=== PATIENT | female | born 1960 | race Caucasian/White ===

== ENCOUNTER → 2017-02-03 | Outpatient (CLI) | payer OTHER ==
[~2017-02-03] MED LIST: BIOTIN PO; CALCIUM 600 + D1 TA1 PO; FOLIC ACID PO; FUROSEMIDE40 MG PO; LASIX PO; LORTAB 7.51 TAB PO; MONTELUKAST SOD10 MG PO; MULTI-VITAMIN1 EAC1 PO; NASAL SPRAY30 M3; NEXIUM PO; PHENTERMINE H37.5 M1 PO; POTASSIUM CHLO10 ME1 PO; PRISTIQ100 MG PO; PRISTIQ50 MG PO; REQUIP2 MG PO; RESTASIS32 EA OP; RESTASIS32 EA OU; SOD BICARBONATE; SODIUM BICARBO650 MG PO; TIZANIDINE HCL4 M1 PO; TRAZODONE HCL150 MG PO; VITAMIN B 12; VITAMIN B 6 PO; VITAMIN B-1 PO; VITAMIN C500 M1 PO; VITAMIN D-3 PO; VITAMIN E100 UNIT PO
--- NOTE | ~2017-02-03 | BD1 ---
[facility] A Service of [facility] RADIOLOGY TEXT RESULTS PATIENT: UNA ROSA LOCATION: [facility] : 56 UNIT #: [id number] AGE: [address]: Roger Stiles MD SEX: F ORDER DR: [id number] [facility] [address] [place], [place] [address] [id number] O MR#: [id number] Acc #: [id number] NAME: UNA ROSA : 1960 SEX: F STUDY DATE/TIME: 02/03/2017 12:36 UNIT: [facility] ROOM: STUDY DESCRIPTION: BD Dexa Bone Dens 1+ Site Attending Physician: Ulysses Stiles M.D. Referring Physician: Ulysses Stiles M.D. Ordering Physician: Ulysses Stiles M.D. Primary Care Physician: Klaudia Guaman M.D. MEDICAL IMAGING REPORT This report is preliminary unless electronic signature is present EXAM DXA scan 02/03/2017 HISTORY Status post menopause with history of hormone replacement therapy beginning at age 55. Osteopenia. Arthritis. Hypertension with blood pressure medication for 10 years. Thyroid medication for 8 months. Fracture of finger in last 10 years. Smoking history. FINDINGS Bone mineral density in the lumbar spine from L1-L4 was 0.886 g/cm2 which is 1.5 standard deviations below the mean when compared to the young adult reference population which is characteristic of osteopenia. This is 0.1 standard deviations below the mean when compared to the age-matched population. Bone mineral density in the left femoral neck was 0.572 g/cm2 which is 3 standard deviations below the mean when compared to the young adult reference population which is characteristic of osteoporosis. This is 2.2 standard deviations below the mean when compared to the age-matched population. IMPRESSION Bone mineral density in the lumbar spine characteristic of osteopenia and within the left hip characteristic of osteoporosis. Dictated by... Austin Hummel M.D. THIS IS AN ELECTRONICALLY VERIFIED REPORT Austin Hummel M.D. at 02/04/2017 2:18 PM KRT/rnr TD: 02/03/2017 16:33 JOB #: [id number] [facility] A Service of [facility] RADIOLOGY TEXT RESULTS PATIENT: UNA ROSA LOCATION: [facility] : 56 UNIT #: [id number] AGE: [address]: Roger Stiles MD SEX: F ORDER DR: MEDICAL IMAGING REPORT Page 1 of 1 COPY
== END | disposition home or self-care (01) ==
LOC: CWCC 12:16
DX: M81.0 Age-related osteoporosis without current pathological fracture (principal); M85.88 Other specified disorders of bone density and structure, other site
CPT/HCPCS: 77080

== ENCOUNTER → 2017-04-22 | Outpatient (CLI) | payer OTHER | END | disposition home or self-care (01) | LOC: CECH 13:18 | DX: R07.9 Chest pain, unspecified (principal); R01.1 Cardiac murmur, unspecified; I51.7 Cardiomegaly | CPT/HCPCS: 93306 ==

== ENCOUNTER → 2017-06-16 | Outpatient (CLI) | payer OTHER ==
--- NOTE | ~2017-06-16 | US98 ---
[facility] A Service of [facility] RADIOLOGY TEXT RESULTS PATIENT: UNA ROSA LOCATION: [facility] : 56 UNIT #: [id number] AGE: [address]: Klaudia Guaman MD SEX: F ORDER DR: [id number] [facility] [address], [place] [address] [id number] O MR#: [id number] Acc #: [id number] NAME: UNA ROSA : 1960 SEX: F STUDY DATE/TIME: 06/16/2017 13:27 UNIT: [facility] ROOM: STUDY DESCRIPTION: US Pelvic Non-OB Complete Attending Physician: Klaudia Guaman M.D. Referring Physician: Klaudia Guaman M.D. Ordering Physician: Klaudia Guaman M.D. Primary Care Physician: Klaudia Guaman M.D. MEDICAL IMAGING REPORT This report is preliminary unless electronic signature is present EXAM Pelvic ultrasound INDICATIONS Post menopausal bleeding for the past month. PROCEDURE Liao-scale and Doppler imaging of the pelvis via transabdominal and transvaginal approach. COMPARISON 06/11/2016 FINDINGS Uterus is anteverted measures 4.8 x 3.1 x 2.7 cm. Endometrium measures 1 mm in thickness. No fluid in the endometrial cavity. Both adnexa are obscured by bowel gas and the ovaries are not seen. No fluid pelvic fluid. IMPRESSION 1. The ovaries are not seen. Both adnexa are obscured by bowel gas. 2. Otherwise negative pelvic ultrasound Dictated by... Pete Elkins M.D. THIS IS AN ELECTRONICALLY VERIFIED REPORT Pete Elkins M.D. at 06/17/2017 7:03 AM JOSEPH/dalia TD: 06/17/2017 04:15 JOB #: [id number] MEDICAL IMAGING REPORT [facility] A Service [facility] RADIOLOGY TEXT RESULTS PATIENT: UNA ROSA LOCATION: [facility] : 56 UNIT #: [id number] AGE: [address]: Klaudia Guaman MD SEX: F ORDER DR: Page 1 of 1 COPY
--- NOTE | ~2017-06-16 | PFT ---
[id number] [facility] [address] [place], [place] [address] [id number] O MR#: [id number] NAME: UNA ROSA ROOM: SEX: F STUDY DATE/TIME: : 1960 AGE: STUDY DESCRIPTION: Attending Physician: Klaudia Guaman M.D. Referring Physician: Klaudia Guaman M.D. Primary Care Physician: Klaudia Guaman M.D. PULMONARY DIAGNOSTIC REPORT EXAM Pulmonary function tests. FINDINGS Spirometry is normal. There is no significant response to bronchodilators. Flow volume loop is normal. Lung volumes are unremarkable except for reduced ERV consistent with obesity. Diffusion capacity is low normal. Overall, fairly unremarkable PFTs. Dictated by... Maldonado Velez M.D. DANII/thomas TD: 06/21/2017 11:45 JOB #: [id number] PULMONARY DIAGNOSTIC REPORT Page 1 of 1
--- NOTE | ~2017-06-16 | MY29 ---
[facility] A Service of [facility] RADIOLOGY TEXT RESULTS PATIENT: UNA ROSA LOCATION: [facility] : 56 UNIT #: [id number] AGE: [address]: Klaudia Guaman MD SEX: F ORDER DR: [id number] [facility] [address] [place], [place] [address] [id number] O MR#: [id number] Acc #: [id number] NAME: UNA ROSA : 1960 SEX: F STUDY DATE/TIME: 06/16/2017 13:48 UNIT: [facility] ROOM: STUDY DESCRIPTION: [facility] SCREENING W/ CAD BILAT Attending Physician: Klaudia Guaman M.D. Referring Physician: Klaudia Guaman M.D. Ordering Physician: Klaudia Guaman M.D. Primary Care Physician: Klaudia Guaman M.D. MEDICAL IMAGING REPORT This report is preliminary unless electronic signature is present EXAM Digital screening mammogram with CAD,. INDICATIONS Routine screening. PROCEDURE Bilateral CC and MLO views obtained on a digital mammography unit FDA-approved CAD device utilized. COMPARISON 06/11/16. FINDINGS 2 focal asymmetries in the right breast are similar to the prior and show features most in keeping with benign intramammary lymph nodes. Scattered fibroglandular density. No dominant mass or suspicious calcification. IMPRESSION Benign screening mammogram screen for 1 year suggested. Patients over the age of 40 are entered into a reminder system with target due date for the next mammogram. A result letter will be sent to the patient. BIRADS: 2 Benign findings. Dictated by... Pete Elkins M.D. THIS IS AN ELECTRONICALLY VERIFIED REPORT Pete Elkins M.D. at 06/18/2017 12:12 PM EED/gz [facility] A Service of [facility] RADIOLOGY TEXT RESULTS PATIENT: UNA ROSA LOCATION: [facility] : 56 UNIT #: [id number] AGE: [address]: Klaudia Guaman MD SEX: F ORDER DR: TD: 06/17/2017 07:24 JOB #: [id number] MEDICAL IMAGING REPORT Page 1 of 1 COPY
== END | disposition home or self-care (01) ==
LOC: CGUS 06-02 13:30 → CWCC 13:06 → CGUS 13:30
DX: Z12.31 Encounter for screening mammogram for malignant neoplasm of breast (principal); R06.02 Shortness of breath; N95.0 Postmenopausal bleeding
CPT/HCPCS: 76830; 76856; 94060; 94726; 94729; G0202

== ENCOUNTER → 2017-06-22 | Outpatient (CLI) | payer OTHER ==
--- NOTE | ~2017-06-22 | US6 ---
[facility] A Service of [facility] RADIOLOGY TEXT RESULTS PATIENT: UNA ROSA LOCATION: [facility] : 56 UNIT #: [id number] AGE: [address]: Los Palmer MD SEX: F ORDER DR: [id number] [facility] [address] [place], [place] [address] [id number] O MR#: [id number] Acc #: [id number] NAME: UNA ROSA : 1960 SEX: F STUDY DATE/TIME: 06/22/2017 13:38 UNIT: [facility] ROOM: STUDY DESCRIPTION: US Abdominal Limited Attending Physician: Los Palmer M.D. Ordering Physician: Los Palmer M.D. Primary Care Physician: Klaudia Guaman M.D. MEDICAL IMAGING REPORT This report is preliminary unless electronic signature is present EXAM Right upper quadrant ultrasound. INDICATIONS Right upper quadrant pain. This is of postprandial and has been present for 30 years. Pain occurs intermittently. TECHNIQUE Liao-scale and color Doppler sonographic images were obtained through the right upper quadrant. FINDINGS There is limited visualization of the pancreas, liver is heterogeneous in echotexture although no focal hepatic lesions are seen. The gallbladder is surgically absent. I am not convinced that I can see any intra or extrahepatic biliary dilatation. The right kidney is normal appearance with no solid or cystic renal masses identified. IMPRESSION Somewhat heterogeneous appearing hepatic parenchyma. No other acute findings. Dictated by... Najma Smith M.D. THIS IS AN ELECTRONICALLY VERIFIED REPORT Najma Smith M.D. at 06/23/2017 4:44 PM AFF/jt TD: 06/22/2017 22:33 JOB #: [id number] MEDICAL IMAGING REPORT [facility] A Service of [facility] RADIOLOGY TEXT RESULTS PATIENT: UNA ROSA LOCATION: [facility] : 56 UNIT #: [id number] AGE: [address]: Los Palmer MD SEX: F ORDER DR: Page 1 of 1 COPY
== END | disposition home or self-care (01) ==
LOC: CWCC 06-17 09:30
DX: R10.11 Right upper quadrant pain (principal)
CPT/HCPCS: 76705